=== PATIENT | female | born 1970 | race Caucasian/White ===

== ENCOUNTER 2017-04-22 15:20 | Emergency (ER) | payer MEDICARE ==
[~2017-04-22] VITALS: Ht 180.3 cm; Wt 72.6 kg
[~2017-04-22 15:20] MED LIST: PROVENTIL HFA6.7 GM INH; TYLENOL EXTRA500 MG PO
[2017-04-22] MEDS ORDERED: ATIVAN1 MG PO (15:40)
== END 2017-04-22 16:05 | disposition home or self-care (01) ==
LOC: ED 15:20
DX: F41.0 Panic disorder [episodic paroxysmal anxiety] (principal); E78.5 Hyperlipidemia, unspecified; F32.9 Major depressive disorder, single episode, unspecified; F17.200 Nicotine dependence, unspecified, uncomplicated; Z90.49 Acquired absence of other specified parts of digestive tract; Z90.710 Acquired absence of both cervix and uterus
CPT/HCPCS: 99283

== ENCOUNTER 2017-05-21 10:10 | Emergency (ER) | payer MEDICARE ==
[~2017-05-21] VITALS: Ht 180.3 cm; Wt 72.6 kg
[~2017-05-21 10:10] MED LIST changes: +ATIVAN1 MG PO
[2017-05-21] MEDS ORDERED: ATIVAN1 MG PO (10:27)
== END 2017-05-21 11:00 | disposition home or self-care (01) ==
LOC: ED 10:10
DX: F41.0 Panic disorder [episodic paroxysmal anxiety] (principal); F43.9 Reaction to severe stress, unspecified; E78.5 Hyperlipidemia, unspecified; F32.9 Major depressive disorder, single episode, unspecified; F17.200 Nicotine dependence, unspecified, uncomplicated; Z90.49 Acquired absence of other specified parts of digestive tract; Z90.710 Acquired absence of both cervix and uterus
CPT/HCPCS: 99283

== ENCOUNTER 2017-05-25 11:40 | Emergency (ER) | payer MEDICARE ==
[~2017-05-25] VITALS: Ht 180.3 cm; Wt 77.6 kg
[2017-05-26] MEDS ORDERED: LEXAPRO10 MG PO (20:10)
== END 2017-05-25 13:44 | disposition home or self-care (01) ==
LOC: ED 11:40
DX: H53.2 Diplopia (principal); E78.5 Hyperlipidemia, unspecified; F32.9 Major depressive disorder, single episode, unspecified; F41.9 Anxiety disorder, unspecified; F17.200 Nicotine dependence, unspecified, uncomplicated; Z90.710 Acquired absence of both cervix and uterus; Z90.49 Acquired absence of other specified parts of digestive tract
CPT/HCPCS: 70450; 99284

== ENCOUNTER 2017-05-26 19:15 | Emergency (ER) | payer MEDICARE ==
[~2017-05-26] VITALS: Ht 180.3 cm; Wt 77.6 kg
[2017-05-26] MEDS ORDERED: LEXAPRO10 MG PO (20:10)
== END 2017-05-26 20:22 | disposition home or self-care (01) ==
LOC: ED 19:15
DX: F41.0 Panic disorder [episodic paroxysmal anxiety] (principal); E78.5 Hyperlipidemia, unspecified; F32.9 Major depressive disorder, single episode, unspecified; F43.10 Post-traumatic stress disorder, unspecified; F17.200 Nicotine dependence, unspecified, uncomplicated; Z90.710 Acquired absence of both cervix and uterus; Z90.49 Acquired absence of other specified parts of digestive tract
CPT/HCPCS: 99283

== ENCOUNTER 2017-06-04 11:37 | Emergency (ER) | payer MEDICARE ==
[~2017-06-04] VITALS: Ht 180.3 cm; Wt 77.6 kg
[~2017-06-04 11:37] MED LIST changes: +LEXAPRO10 MG PO
[2017-06-04] MEDS ORDERED: XANAX0.5 MG PO (11:54)
[2017-06-04] MEDS ORDERED: ESCITALOPRAM OX20 MG PO (11:59)
--- NOTE | 2017-06-05 07:20 | EKG ---
[facility] [address] [place], [place] [address] Signed Sinus bradycardia Otherwise normal ECG No previous ECGs available Confirmed by PIERO ZIMMERMAN MD ([id number] on 06/05/2017 7:20:31 AM Electronically Signed By: PIERO ZIMMERMAN MD 06/05/17 0720 PATIENT NAME: SASKIA WASHINGTON Electrocardiogram DATE OF : 68 PHYSICIAN: PIERO ZIMMERMAN MD REPORT #: [id number] REPORT IS CONFIDENTIAL AND NOT TO BE RELEASED WITHOUT AUTHORIZATION
== END 2017-06-04 12:14 | disposition home or self-care (01) ==
LOC: ED 11:37
DX: F41.0 Panic disorder [episodic paroxysmal anxiety] (principal); E78.5 Hyperlipidemia, unspecified; F32.9 Major depressive disorder, single episode, unspecified; F43.10 Post-traumatic stress disorder, unspecified; F17.200 Nicotine dependence, unspecified, uncomplicated; Z90.710 Acquired absence of both cervix and uterus; Z90.89 Acquired absence of other organs; Z79.899 Other long term (current) drug therapy
CPT/HCPCS: 93005; 93010; 99283

== ENCOUNTER 2022-04-27 11:45 | Emergency (ER) | payer MEDICARE, OTHER ==
[~2022-04-27] VITALS: Ht 180.3 cm; Wt 61.9 kg
[~2022-04-27 11:45] MED LIST changes: +ESCITALOPRAM OX20 MG PO; +XANAX0.5 MG PO
--- OUTSIDE RECORDS SUMMARY | 2022-04-27 11:52 | XMS ---
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 Care Guidelines exist for the following facilities: [facility] ( 02/16/2020 ) [place] [facility] (12 MO.) [facility] NOTE: Visits indicate total known visits. ED/UCC VISIT TRACKING (12 MO.) 04/27/2022 11:[address] [facility] TYPE: Emergency COMPLAINT: - MEDICAL CLEARANCE INPATIENT VISIT TRACKING (12 MO.) No inpatient visits to display in this time frame [id number]
== END 2022-04-27 22:00 ==
LOC: ED 11:45
DX: R45.851 Suicidal ideations (principal); R51.9 Headache, unspecified; Z20.822 Contact with and (suspected) exposure to COVID-19; E78.5 Hyperlipidemia, unspecified; F17.200 Nicotine dependence, unspecified, uncomplicated
CPT/HCPCS: 36415; 80053; 81001; 84443; 85025; 87502; 99285; A9270; C9803; G0480; U0003

== ENCOUNTER 2022-05-12 04:48 | Emergency (ER) | payer MEDICARE, OTHER ==
[~2022-05-12] VITALS: Ht 180.3 cm; Wt 61.7 kg
--- OUTSIDE RECORDS SUMMARY | 2022-05-12 04:56 | XMS ---
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 Care Guidelines exist for the following facilities: [facility] ( 02/16/2020 ) [place] VISIT COUNT (12 MO.) 2 [facility] TOTAL 2 NOTE: Visits indicate total known visits. ED/UCC VISIT TRACKING (12 MO.) 05/12/2022 04:49 [facility] TYPE: Emergency COMPLAINT: - RAPID HEART RATE 04/27/2022 11:46 [facility] TYPE: Emergency COMPLAINT: - MEDICAL CLEARANCE DIAGNOSES: - Headache, unspecified - Contact with and (suspected) exposure to COVID-19 - Suicidal ideations - Hyperlipidemia, unspecified - Nicotine dependence, unspecified, uncomplicated INPATIENT VISIT TRACKING (12 MO.) No inpatient visits to display in this time frame [email or web address]
[2022-05-12] MEDS ORDERED: HYDROXYZINE HCL50 MG (05:01)
[2022-05-12] MEDS ORDERED: TYLENOL325 MG (05:01)
--- NOTE | 2022-05-12 17:36 | EKG ---
[facility] [address] [place] [address] Signed Normal sinus rhythm Normal ECG When compared with ECG of 04-JUN-2017 11:49, No significant change was found Confirmed by MARI FRANCO MD ([id number] on 05/12/2022 5:36:39 PM Electronically Signed By: MARI FRANCO MD 05/12/22 1736 PATIENT NAME: SASKIA WASHINGTON Electrocardiogram DATE OF : 68 PHYSICIAN: MARI FRANCO MD REPORT #: [id number] REPORT IS CONFIDENTIAL AND NOT TO BE RELEASED WITHOUT AUTHORIZATION
== END 2022-05-12 06:08 | disposition home or self-care (01) ==
LOC: ED 04:48
DX: F41.9 Anxiety disorder, unspecified (principal); E78.5 Hyperlipidemia, unspecified; F43.10 Post-traumatic stress disorder, unspecified; F17.200 Nicotine dependence, unspecified, uncomplicated; Z79.899 Other long term (current) drug therapy
CPT/HCPCS: 93005; 93010; 96372; 99283-25; J2060